=== PATIENT | female | born 1955 | race Caucasian/White ===

== ENCOUNTER → 2020-10-09 | Day surgery (SDC) | payer MEDICARE, OTHER ==
[~2020-10-09] MED LIST: CHOL400T2 PO; ESOM20CA PO; IPRATRPIUM/ALBUTEROL 0.5/2.5MG 3 ML NEBU. NEB PRN; IV RINGERS SOLUTION,LACTATED 1,000 ML IV SCH; LEVO137T2 PO; LIDOCAINE 2% PF 5 ML VIAL. ONE; METF500T16 PO; MIDAZOLAM HCL PF 2 MG/2 ML VIAL. IV ONE; ONDANSETRON PF 4 MG/2 ML VIAL. IV PRN; PROPOFOL 10,000 MCG/ML (20ML) VIAL IV ONE
[2020-10-09 09:55] VITALS: BP 110/69
--- NOTE | 2020-10-11 12:08 | PATHOLOGY ---
[facility] Accession Number: [id number] . 01 Material submitted: . PART A: cecum - CECUM POLYP HOT SNARE PART B: colon - TRANSVERSE POLYP COLD SNARE X2. Modifiers: transverse, X2 . 01 Clinical history: . COLONOSCOPY PREVIOUS HISTORY OF POLYPS . 02 Diagnosis: A. Colon biopsies, cecal polyp: - Tubular adenoma. . B. Colon biopsies, transverse colon polyp x 2: - Tubular adenomas. ([facility]; 10/11/2020) [facility] 10/11/2020 0954 Local . 02 Comment: There is no high-grade dysplasia or evidence of malignancy. ([facility]:avril; 10/11/2020) . 02 Electronically signed: . Alex Motta MD, Pathologist NPI- [id number] . 01 Gross description: . A. Received in formalin labeled "Betty Hillman, cecum polyp hot snare" are multiple herring-brown soft tissue fragments measuring in aggregate 2.1 x 0.6 x 0.4 cm. The specimen is submitted entirely in A1. . B. Received in formalin labeled "Kady, Betty transverse polyp cold snare" are multiple herring-brown soft tissue fragments measuring in aggregate 2.1 x 0.7 x 0.3 cm. The specimen is submitted entirely in B1. ([facility]; 10/10/2020) GZA/GZA 10/10/2020 1716 Local . 02 Pathologist provided ICD-10: D12.0, D12.3 . 02 CPT . 805023, 878521 Specimen Comment: A courtesy copy of this report has been sent to [phone] Specimen Comment: [phone] Specimen Comment: Report sent to / DR CHAPIN Performed at: 01 [facility] [address], [place], [place] [id number] MD Dony Kulkarni MD Phone: [phone] Performed at: 02 [facility] [address] [place], [place] [id number] MD Alex Motta MD Phone: [phone]
== END | disposition home or self-care (01) ==
LOC: SURG 08:15
PROVIDERS: ATTEND Internal Medicine Gastroenterology
DX: Z12.11 Encounter for screening for malignant neoplasm of colon (principal); D12.0 Benign neoplasm of cecum; D12.3 Benign neoplasm of transverse colon; K64.8 Other hemorrhoids; K57.30 Diverticulosis of large intestine without perforation or abscess without bleeding; E11.9 Type 2 diabetes mellitus without complications; E66.01 Morbid (severe) obesity due to excess calories; K21.9 Gastro-esophageal reflux disease without esophagitis; E07.9 Disorder of thyroid, unspecified; Z79.899 Other long term (current) drug therapy; Z86.010 Personal history of colon polyps; Z79.84 Long term (current) use of oral hypoglycemic drugs
CPT/HCPCS: 45385; 82947; 88305; J2001; J2704; J7120

== ENCOUNTER 2021-01-27 14:00 | Emergency (ER) | payer MEDICARE, OTHER ==
[~2021-01-27] VITALS: Ht 162.6 cm; Wt 81.8 kg
[~2021-01-27 14:00] MED LIST changes: -IPRATRPIUM/ALBUTEROL 0.5/2.5MG 3 ML NEBU. NEB PRN; -IV RINGERS SOLUTION,LACTATED 1,000 ML IV SCH; -LIDOCAINE 2% PF 5 ML VIAL. ONE; -MIDAZOLAM HCL PF 2 MG/2 ML VIAL. IV ONE; -ONDANSETRON PF 4 MG/2 ML VIAL. IV PRN; -PROPOFOL 10,000 MCG/ML (20ML) VIAL IV ONE
--- NOTE | 2021-01-27 14:36 | PHYS DOC ---
General Adult EDM: Chief Complaint: MECHANICAL FALL HPI: HPI: Patient is a 65-year-old female being seen in the ER today following a fall. Patient states that she was climbing up some steps in her shoe got caught and she fell forward. She states that she hit the bridge of her nose on the ground. Patient is reporting pain to her nose and her right carrera. She describes it as a throbbing pain. She rates it 5 out of 10. No treatment prior to arrival. Patient is unsure when her last tetanus shot was. Patient denies losing consciousness. She is not on any blood thinners. Patient denies any nausea, vomiting, vision changes. Patient was able to bear weight and ambulate following fall. (KARIN COLORADO APRN) Review of Systems: Review of Systems: 14 body systems of the review of systems have been reviewed. See HPI for pertinent positive and negative responses, otherwise all other systems are negative, nonpertinent or noncontributory (KARIN COLORADO APRN) Allergies: Allergies: Allergies Coded Allergies Type Severity Reaction Last Updated Verified No Known Drug Allergies 10/09/20 No (KARIN COLORADO APRN) Physical Exam: PE: Constitutional: Well developed, well nourished, no acute distress, non-toxic appearance. [] HENT: Normocephalic, small abrasion noted to bridge of nose, no nasal deformity, negative raccoon sign, bilateral external ears normal, oropharynx moist, no oral exudates, nose normal. [] Eyes: PERRL, EOMI, conjunctiva normal, no discharge. [] Neck: Normal range of motion, no bony spinal tenderness, supple, no stridor. [] Cardiovascular:Heart rate regular rhythm, no murmur [] Lungs & Thorax: Bilateral breath sounds clear to auscultation [] Abdomen: Bowel sounds normal, soft, no tenderness, no masses, no pulsatile masses. [] Skin: Warm, dry, no erythema, no rash. [] Back: No tenderness, normal range of motion Extremities: No tenderness, no cyanosis, no clubbing, ROM intact, no edema. Right lower extremity: Swelling and abrasion noted to anterior aspect of right lower extremity, no bony tenderness with palpation of knee, full range of motion, neurovascularly intact Neurologic: Alert and oriented X 3, normal motor function, normal sensory function, no focal deficits noted. [] Psychologic: Affect normal, judgement normal, mood normal. [] (KARIN COLORADO APRN) EKG: EKG: [] (KARIN COLORADO APRN) Radiology/Procedures: Radiology/Procedures: PROCEDURE: TIBIA FIBULA RIGHT EXAMINATION: XR RT TIBIA+FIBULA CLINICAL HISTORY: Right lower leg pain TECHNIQUE: XR RT TIBIA+FIBULA Number of Images/Views: 2 COMPARISON: None FINDINGS: No acute fracture. Joints at the knee and ankle incompletely evaluated. 0.5 x 0.7 x 2.1 cm focus of heterogeneous mineralization in the central distal tibial diaphysis, nonspecific but possibly related to a enchondroma or bone infarct. Focal anterior soft tissue swelling along the proximal lower leg. IMPRESSION: No acute osseous abnormality right lower leg. Electronically signed by: Chris Germain DO (01/27/2021 3:03 PM) [facility] DICTATED AND SIGNED BY: CHRIS GERMAIN DO DATE: 01/27/21 1458 CC: SCHUYLER CHAPIN MD; KARIN COLORADO APRN ~MTH0 0[] PROCEDURE: CT HEAD AND MAXILLOFACIAL WO CT HEAD AND MAXILLOFACIAL WO History: Fall, nasal pain and abrasion. Comparison: None. Technique: Noncontrast CT of the head and maxillofacial bones. Exposure: One or more of the following individualized dose reduction techniques were utilized for this examination: 1. Automated exposure control 2. Adjustment of the mA and/or kV according to patient size 3. Use of iterative reconstruction technique. Findings: CT HEAD: There is no evidence for intracranial mass or hemorrhage. There is no hydrocephalus or midline shift. No abnormal extra-axial fluid collections are present. Prince/white matter differentiation is preserved. The visualized paranasal sinuses and mastoid air cells are clear. The skull and scalp are within normal limits. CT MAXILLOFACIAL: No acute facial fracture identified. The bilateral orbits are symmetric and unremarkable. Periorbital soft tissues are normal. The paranasal sinuses and visualized mastoid air cells are well aerated. Impression: 1. No acute intracranial findings. 2. No facial fracture. Electronically signed by: Ayaz King MD (01/27/2021 3:29 PM) [id number] DICTATED AND SIGNED BY: AYAZ KING MD DATE: 01/27/21 1525 CC: SCHUYLER CHAPIN MD; KARIN COLORADO APRN ~MTH0 0 (KARIN COLORADO APRN) Heart Score: C/O Chest Pain: No Risk Factors: Risk Factors: DM, Current or recent (<one month) smoker, HTN, HLP, family history of CAD, obesity. Risk Scores: Score 0 - 3: 2.5% MACE over next 6 weeks - Discharge Home Score 4 - 6: 20.3% MACE over next 6 weeks - Admit for Clinical Observation Score 7 - 10: 72.7% MACE over next 6 weeks - Early Invasive Strategies (KARIN COLORADO APRN) Course & Med Decision Making: Course & Med Decision Making Pertinent Labs and Imaging studies reviewed. (See chart for details) Patient is a 65-year-old female being seen in the ER following a fall. Patient is complaining of right carrera pain and pain to her nose. CT scan of her head and maxillofacial bones was performed. Patient also had an x-ray performed of her tib-fib for the right leg. Patient's tetanus updated in the ER. Imaging in the ER was negative for any acute findings. Patient's abrasions were cleaned and dressing placed in the ER. Patient advised to take Tylenol/ibuprofen and apply ice for pain control and swelling. Patient advised to follow-up with her primary care provider. I discussed with patient all findings and diagnostic testing as well as the need to follow-up with PCP for further evaluation and treatment or return to the ER if any new or worsening symptoms. Strict return precautions were also discussed at length. Patient voiced understanding and agreement with the plan. Patient is hemodynamically stable at the time of disposition. (KARIN COLORADO APRN) Course & Med Decision Making I was the Attending physician on the above date of service of this patient. This patient was evaluated, examined, treated, and dispositioned from the emergency department by the mid-level practitioner. Although I was working at the time , no assistance was requested. Electronically signed, Lore Elise DO (LORE ELISE DO) Mari Disclaimer: Mari Disclaimer: This electronic medical record was generated, in whole or in part, using a voice recognition dictation system. (KARIN COLORADO APRN) Departure Departure: Impression: Primary Impression: Fall Qualified Codes: W19.XXXA - Unspecified fall, initial encounter Disposition: HOME / SELF CARE / HOMELESS Condition: GOOD Referrals: SCHUYLER CHAPIN MD (PCP) Patient Instructions: Contusion, Fall Prevention and Home Safety Additional Instructions: You were seen in the ER following a fall. Imaging was negative for any acute fracture. Please keep your abrasions clean and dry. You can clean them with warm water and mild soap. Keep dressings intact. Your tetanus was updated in the ER today. You can take Tylenol/ibuprofen for pain at home and apply ice. Follow-up with your primary care provider tomorrow regarding your ER visit. If you develop worsening of your pain, inability to bear weight or ambulate, weakness, headache, intractable nausea or vomiting or any new or worsening concerns please return to the ER. EMERGENCY DEPARTMENT GENERAL DISCHARGE INSTRUCTIONS Thank you for coming to [facility] (ED) today and trusting us with you care. We trust that you had a positivie experience in our Emergency Department. If you wish to speak to the department management, you may call the director at [phone]. YOUR FOLLOW UP INSTRUCTIONS ARE FOLLOWS: 1. Do you have a private Doctor? If you do not have a private doctor, please ask for a resource list of physicians or clinics that may be able to assist you with follow up care. 2. The Emergency Physician has interpreted your x-rays. The X-Ray specialist will also review them. If there is a change in the findings, you will be notified in 48 hours when at all possible. 3. A lab test or culture has been done, your results will be reviewed and you will be notified if you need a change in treatment. ADDITIONAL INSTRUCTIONS AND INFORMATION: 1. Your care today has been supervised by a physician who is specially trained in emergency care. Many problems require more than one evaluation for a complete diagnosis and treatment. We recommend that you schedule your follow up appointment as recommended to ensure complete treatment of you illness or injury. If you are unable to obtain follow up care and continue to have a problem, or if your condition worsens, we recommend that you return to the ED. 2. We are not able to safely determine your condition over the phone nor are we able to give sound medical advice over the phone. For these safety reasons, if you call for medical advice we will ask you to come to the ED for further evaluation. 3. If you have any questions regarding these discharge instructions please call the ED at [phone]. SAFETY INFORMATION: In the interest of safety, wellness, and injury prevention; we encourage you to wear your sealbelt, if you smoke; quite smoking, and we encourage family to use a protective helmet for bicycling and other sporting events that present an increased risk for head injury. IF YOUR SYMPTOMS WORSEN OR NEW SYMPTOMS DEVELOP, OR YOU HAVE CONCERNS ABOUT YOUR CONDITION; OR IF YOUR CONDITION WORSENS WHILE YOU ARE WAITING FOR YOUR FOLLOW UP APPOINTMENT; EITHER CONTACT YOUR PRIMARY CARE DOCTOR, THE PHYSICIAN WHOSE NAME AND NUMBER YOU WERE GIVEN, OR RETURN TO THE ED IMMEDIATELY. KARIN COLORADO APRN Jan 27, 2021 14:36 LORE ELISE DO Jan 28, 2021 06:54
--- NOTE | 2021-01-27 15:05 | RAD ---
EXAMINATION: XR RT TIBIA+FIBULA CLINICAL HISTORY: Right lower leg pain TECHNIQUE: XR RT TIBIA+FIBULA Number of Images/Views: 2 COMPARISON: None FINDINGS: No acute fracture. Joints at the knee and ankle incompletely evaluated. 0.5 x 0.7 x 2.1 cm focus of h eterogeneous mineralization in the central distal tibial diaphysis, nonspecific but possibly related to a enchondroma or bone infarct. Focal anterior soft tissue swelling along the proximal lower leg. IMPRESSION: No acute osseous abnormality right lower leg. Electronically signed by: Chris Mcnally DO (01/27/2021 3:03 PM) [facility]
--- NOTE | 2021-01-27 15:32 | RAD ---
CT HEAD AND MAXILLOFACIAL WO History: Fall, nasal pain and abrasion. Comparison: None. Technique: Noncontrast CT of the head and maxillofacial bones. Exposure: One or more of the following individualized dose reduction techniques were utilized for thi s examination: 1. Automated exposure control 2. Adjustment of the mA and/or kV according to patient size 3. Use of iterative reconstruction technique. Findings: CT HEAD: There is no evidence for intracranial mass or hemorrhage. There is no hydrocephalus or midline shift. No abnormal extra-axial fluid collections are present. Prince/white matter differentiation is preserved. The visualized paranasal sinuses and mastoid air cells are clear. The skull and scalp are within normal limits. CT MAXILLOFACIAL: No acute facial fracture identified. The bilateral orbits are symmetric and unremarkable. Periorbital soft tissues are normal. The paranasal sinuses and visualized mastoid air cells are well aerated. Impression: 1. No acute intracranial findings. 2. No facial fracture. Electronically signed by: Ayaz Haque MD (01/27/2021 3:29 PM) [id number]
[2021-01-27 15:35] VITALS: BP 117/77
[2021-01-27] MEDS ORDERED: BACITRACIN ZINC TOPICAL OINT PACKET. TP ONE (15:43)
[2021-01-27] MEDS ORDERED: DIPH,PERTUSS(ACELL),TET VAC/PF 0.5 ML SYRINGE. VAX IM ONE (16:00)
== END 2021-01-27 16:00 | disposition home or self-care (01) ==
LOC: ER 14:00
DX: S00.31XA Abrasion of nose, initial encounter (principal); S80.811A Abrasion, right lower leg, initial encounter; W18.39XA Other fall on same level, initial encounter; Y93.89 Activity, other specified; Y92.89 Other specified places as the place of occurrence of the external cause; Y99.8 Other external cause status
CPT/HCPCS: 70450; 70486; 73590; 90471; 90715; 99285-25